=== PATIENT | male | born 1965 | race Caucasian/White ===

== ENCOUNTER 2018-10-18 08:10 | Inpatient (IN) | payer MEDICAID, OTHER ==
[2018-10-18] MEDS ORDERED: Piperacillin/Tazobact 3.375 GM in Sodium Chloride 100 ML IVPB STA (09:00)
--- NOTE | 2018-10-18 09:08 | C.PDOC ---
History Of Present Illness 52 y/o male pt presents to the ER c/o right leg redness and swelling for x2 days. Pt denies injury to legs, fever, or excessive activities that require him to kneel often. Pt reports his PMD is Dr. Dutton. Time Seen by Provider: 10/18/18 08:22 Chief Complaint (Nursing): Lower Extremity Problem/Injury History Per: Patient History/Exam Limitations: no limitations Onset/Duration Of Symptoms: Days (x2) Current Symptoms Are (Timing): Still Present Past Medical History Reviewed: Historical Data, Nursing Documentation, Vital Signs Vital Signs: Last Vital Signs Temp 98.4 F 10/18/18 08:12 Pulse 91 H 10/18/18 08:12 Resp 18 10/18/18 08:12 BP 150/92 H 10/18/18 08:12 Pulse Ox 95 10/18/18 08:12 - Medical History PMH: HTN - [facility] Procedures DESTRUCT ABD WALL LESION (06/27/13) OTH & OPEN REP OTH HERNIA OF ANTER ABD WALL W GRF OR PROSTH (06/27/13) Family History: States: No Known Family Hx - Social History Hx Tobacco Use: No Hx Alcohol Use: No Hx Substance Use: No - Immunization History Hx Tetanus Toxoid Vaccination: No Hx Influenza Vaccination: No Hx Pneumococcal Vaccination: No Review Of Systems Except As Marked, All Systems Reviewed And Found Negative. Musculoskeletal: Positive for: Leg Pain (redness and swelling b/l) Physical Exam - Physical Exam Appears: Non-toxic, No Acute Distress Skin: Normal Color, Warm, Dry Head: Atraumatic, Normacephalic Eye(s): bilateral: Normal Inspection, PERRL, EOMI, left: Other (blind) Chest: Symmetrical Cardiovascular: Rhythm Regular, No Murmur Respiratory: Normal Breath Sounds, No Rales, No Rhonchi, No Wheezing Gastrointestinal/Abdominal: Normal Exam, Soft, No Tenderness Extremity: No Calf Tenderness (b/l), Swelling (Right leg ), Other (R Leg: tib/fib erythema, no crepitus, neurovascular intact; L Leg: early erthema on medial aspect of tib/fib area. ) Pulses: Left Dorsalis Pedis: Normal, Right Dorsalis Pedis: Normal Neurological/Psych: Oriented x3, Normal Speech, Normal Motor, Normal Sensation ED Course And Treatment - Laboratory Results Result Diagrams: 10/18/18 09:31 10/18/18 09:31 ECG: Interpreted By Me, Viewed By Me ECG Rhythm: Sinus Rhythm Interpretation Of ECG: normal intervals; normal axis; non-specific T wave chnages Rate From EC O2 Sat by Pulse Oximetry: 95 (RA) Pulse Ox Interpretation: Normal - Other Rad chest X-Ray: Read By Radiologist Interpretation: Accession No. : [id number]. Patient Name / ID : ANDREW GARCIA / [id number]. Exam Date : 10/18/2018 09:58:35 ( Approved ). Study Comment : Sex / Age : M / 52Y. Creator : Keyla Montez MD. Dictator : Keyla Montez MD. 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 Approver2 : Report Date : 10/18/2018 10:11:09. My Comment : . HISTORY: SOB. COMPARISON: Chest x-ray performed 06/27/13. TECHNIQUE: Chest, one view. FINDINGS: LUNGS: No focal consolidation. Please note that chest x-ray has limited sensitivity for the detection of pulmonary masses. PLEURA: No significant pleural effusion identified. No definite pneumothorax . CARDIOVASCULAR: Heart size appears wi thin normal limits. Atherosclerotic calcification present. OSSEOUS STRUCTURES: No acute osseous abnormality identified. VISUALIZED UPPER ABDOMEN: Unremarkable. OTHER FINDINGS: None. IMPRESSION: No focal consolidation. Tib X-Ray: Read By Radiologist Interpretation: Accession No. : [id number]. Patient Name / ID : ANDREW GARCIA / [id number]. Exam Date : 10/18/2018 09:53:38 ( Approved ). Study Comment : Sex / Age : M / 52Y. Creator : Keyla Montez MD. Dictator : Keyla Montez MD. 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 Approver2 : Report Date : 10/18/2018 10:16:47. My Comment : . PROCEDURE: Radiographs of the right tibia and fibula. HISTORY: infection. COMPARISON: None available. FINDINGS: BONES: No acute displaced fracture. Small osseous proliferation involving the distal 3rd lateral tibia and medial fibula possibly related to remote injury. Correlate clinically. JOINT SPACES: No dislocation. OTHER FINDINGS: Soft tissue swelling. No evidence of radiopaque foreign body. IMPRESSION: Soft tissue swelling. Findings as above. Medical Decision Making Medical Decision Making: Impression: Cellulitis Plans: -- ekg -- chem labs -- blood work -- CXR -- IV fluids -- Vancomysin -- Blood cx -- R Tibia Fibula XR -- Venous duplex scan lower extremity Venous duplex scan results: RLE no abnormal findings Disposition Discussed With : Hoa Valdovinos Doctor Will See Patient In The: Hospital Counseled Patient/Family Regarding: Studies Performed, Diagnosis - Disposition Disposition: HOSPITALIZED Disposition Time: 10:28 Condition: FAIR Forms: [facility] (Swedish) - Clinical Impression Clinical Impression: Cellulitis - Scribe Statement The provider has reviewed the documentation as recorded by the Scribe Kathryn Carney Provider Attestation: All medical record entries made by the Scribe were at my direction and personally dictated by me. I have reviewed the chart and agree that the record accurately reflects my personal performance of the history, physical exam, medical decision making, and the department course for this patient. I have also personally directed, reviewed, and agree with the discharge instructions and disposition.
[2018-10-18 09:36] LABS: BASO % 0.2 % (0.0-2.0); EOS # 0.6 K/uL (0.0-0.7); EOS % 6.2 % (0.0-4.0); HEMOGLOBIN 15.3 g/dL (12.0-18.0); LYMPH # 1.8 K/uL (1.0-4.3); MEAN CELL VOLUME 86.9 fL (80.0-94.0); MEAN CORPUSCULAR HEMOGLOBIN 29.4 pg (27.0-31.0); MEAN CORPUSCULAR HGB CONC 33.9 g/dL (33.0-37.0); MEAN PLATELET VOLUME 9.7 fL (7.2-11.7); MONO # 0.5 K/uL (0.0-0.8); MONO % 5.8 % (0.0-10.0); NEUT # 6.5 K/uL (1.8-7.0); NEUT % 68.8 % (50.0-75.0); RBC 5.18 Mil/uL (4.40-5.90); RED CELL DISTRIBUTION WIDTH 13.3 % (11.5-14.5); WHITE BLOOD COUNT 9.4 K/uL (4.8-10.8)
[2018-10-18 09:48] LABS: ALB/GLOB RATIO 1.2 (1.0-2.1); ALBUMIN 3.8 g/dL (3.5-5.0); ALT/SGPT 39 U/L (21-72); AST/SGOT 24 U/L (17-59); BLOOD UREA NITROGEN 15 mg/dL (9-20); GFR NON-AFRICAN AMERICAN > 60
--- NOTE | 2018-10-18 10:15 | RAD ---
HISTORY: SOB COMPARISON: Chest x-ray performed 06/27/13 TECHNIQUE: Chest, one view. FINDINGS: LUNGS: No focal consolidation. Please note that chest x-ray has limited sensitivity for the detection of pulmonary masses. PLEURA: No significant pleural effusion identified. No definite pneumothorax . CARDIOVASCULAR: Heart size appears within normal limits. Atherosclerotic calcification present. OSSEOUS STRUCTURES: No acute osseous abnormality identified. VISUALIZED UPPER ABDOMEN: Unremarkable. OTHER FINDINGS: None. IMPRESSION: No focal consolidation.
[2018-10-18] MEDS ORDERED: Piperacillin/Tazobact 3.375 gm 100 ML IVPB ONE (10:19)
[2018-10-18] MEDS ORDERED: Vancomycin 1 GM 1 GM/250 ML BAG IVPB ONE (10:19)
--- NOTE | 2018-10-18 10:20 | RAD ---
PROCEDURE: Radiographs of the right tibia and fibula. HISTORY: infection COMPARISON: None available. FINDINGS: BONES: No acute displaced fracture. Small osseous proliferation involving the distal 3rd lateral tibia and medial fibula possibly related to remote injury. Correlate clinically. JOINT SPACES: No dislocation. OTHER FINDINGS: Soft tissue swelling. No evidence of radiopaque foreign body. IMPRESSION: Soft tissue swelling. Findings as above.
[2018-10-18 11:45] VITALS: RESP 20
--- NOTE | 2018-10-18 11:46 | CP.PCM.HP ---
<Cynthia Gipson - Last Filed: 10/18/18 16:41> History of Present Illness - History of Present Illness History of Present Illness: PGY-1 Cynthia Gipson D.O. H&P for Dr. Valdovinos's service: Patient is a 52 yo male with a history of HTN and incarcerated hernia repair who presented with leg redness and swelling. Patient states that 1 week ago, he started to itch on his lower legs. 2 days ago, he noticed both of his calves becoming red. His R leg also started to swell. The redness has expanded and the swelling has increased in the R leg. Patient states that this has happened to him for the past 3-4 years during the winter. He typically goes to his PMD and receives medication (antibiotic, cream) as an outpatient, but he says this time is the most severe. Additionally, patient states that his legs are very itchy, and this typically occurs during each winter as well. There are some superficial lesions on his legs that he says are particularly itchy. He denies rash elsewhere on his body. This has not affected his walking. He denies any bleeding or discharge. He denies any trauma. 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 He denies recent travel. He denies bug bites/ticks. Denies fever/chills, KNIGHT, cough/congestion, chest pain, SOB, abdominal pain, change of appetite, N/V/D/C. PMH: HTN PSH: incarcerated hernia repair 2012 (Dr. 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 system maintainer Occasional alcohol- 2 beers 1x/month Denies tobacco and illicit drugs PMD: [place] Present on Admission - Present on Admission Any Indicators Present on Admission: No History of DVT/PE: No History of Uncontrolled Diabetes: No Urinary Catheter: No Decubitus Ulcer Present: No Decubitus Ulcer Stage: Unstageable History Surgical Site Infection Following: None Review of Systems - Constitutional Constitutional: absent: Anorexia, Chills, Fatigue, Fever, Headache - EENT Eyes: Loss of Vision (L eye- chronic, 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 absent: Numbness, Stiffness, Tingling - Integumentary Integumentary: As Per HPI, Erythema (LEs), Lesions (RLE), Pruritus (LEs), Swelling (RLE). absent: Bleeding Lesions - Neurological Neurological: absent: Paresthesias, Sensory Deficit, Tremor, Weakness - Hematologic/Lymphatic Hematologic: absent: Easy Bleeding, Easy Bruising, Lymphadenopathy Past Patient History - Infectious Disease Hx of Infectious Diseases: None - Tetanus Immunizations Tetanus Immunization: Unknown - Past Medical History & Family History Past Medical History?: Yes Past Family History: Reviewed and not pertinent - Past Social History Smoking Status: Never Smoked Chewing Tobacco Use: No Cigar Use: No Alcohol: Occasional Drugs: Denies Home Situation {Lives}: Other (girlfriend) - CARDIAC Hx Hypertension: Yes - PSYCHIATRIC Hx Substance Use: No - SURGICAL HISTORY Hx Surgeries: Yes Other/Comment: ABDOMINAL HERNIA SURGERY - ANESTHESIA Hx Anesthesia: Yes Hx Anesthesia Reactions: No Meds Allergies/Adverse Reactions: Allergies Allergy/AdvReac Type Severity Reaction Status Date / Time No Known Allergies Allergy Verified 10/18/18 08:18 Physical Exam - Constitutional Appears: No Acute Distress - Head Exam Head Exam: ATRAUMATIC, NORMAL INSPECTION, NORMOCEPHALIC - Eye Exam Eye Exam: absent: Conjunctival injection, Scleral icterus Additional comments: L eye fixed laterally, cataract, ptosis - ENT Exam ENT Exam: Mucous Membranes Moist - Neck Exam Neck exam: Positive for: Normal Inspection - Respiratory Exam Respiratory Exam: Clear to Auscultation Bilateral, NORMAL BREATHING PATTERN. absent: Accessory Muscle Use, Respiratory Distress - Cardiovascular Exam Cardiovascular Exam: REGULAR RHYTHM, +S1, +S2. absent: Systolic Murmur - GI/Abdominal Exam GI & Abdominal Exam: Soft. absent: Distended, Tenderness - Extremities Exam Extremities exam: Positive for: full ROM (R knee decreased due to swelling), pedal pulses present Additional comments: erythema and nonpitting edema of RLE below knee superficial lesion on R calf- no bleeding or discharge erythema of L calf, no lesions or noticeable edema - Back Exam Back exam: NORMAL INSPECTION - Neurological Exam Neurological exam: Alert, CN II-XII Intact, Oriented x3 - Psychiatric Exam Psychiatric exam: Normal Affect, Normal Mood - Skin Skin Exam: Dry, Warm Results - Vital Signs Recent Vital Signs: Last Vital Signs Temp 98 F 10/18/18 10:17 Pulse 75 10/18/18 10:17 Resp 16 10/18/18 10:56 BP 125/73 10/18/18 10:17 Pulse Ox 95 10/18/18 10:28 - Labs Result Diagrams: 10/18/18 09:31 10/18/18 09:31 Labs: Laboratory Results - last 24 hr 10/18/18 10/18/18 09:31 09:31 WBC 9.4 RBC 5.18 Hgb 15.3 Hct 45.0 MCV 86.9 MCH 29.4 MCHC 33.9 RDW 13.3 Plt Count 196 MPV 9.7 Neut % (Auto) 68.8 Lymph % (Auto) 19.0 L [place] % (Auto) 5.8 Eos % (Auto) 6.2 H Baso % (Auto) 0.2 Neut # (Auto) 6.5 Lymph # (Auto) 1.8 [place] # (Auto) 0.5 Eos # (Auto) 0.6 Baso # (Auto) 0.0 Sodium 138 Potassium 3.7 Chloride 104 Carbon Dioxide 27 Anion Gap 11 BUN 15 Creatinine 0.6 L Est GFR ( Amer) > 60 Est GFR (Non-Af Amer) > 60 Random Glucose 114 H Calcium 9.0 Total Bilirubin 0.9 AST 24 ALT 39 Alkaline Phosphatase 82 Total Protein 6.9 Albumin 3.8 Globulin 3.1 Albumin/Globulin Ratio 1.2 Assessment & Plan - Assessment and Plan (Free Text) Assessment: Patient is a 52 yo male with a history of HTN who presents with b/l LE cellulitis RLE>>LLE x 2 days. Plan: Cellulitis, RLE>>LLE - Afebrile, no leukocytosis - LE Dopplers: no DVT - R tibia/fibula XR: soft tissue swelling - Blood Cx pending - Vancomycin 1 g IV Q12H- started 10/18 - Zosyn 3.375 mg IV Q6H- started 10/18 - Florastor 250 mg PO BID - Benadryl 25 mg PO Q6H PRN pruritis Hypertension - Monitor vitals Q4H - Norvasc 5 mg PO daily Ppx: VTE: SCD contraindicated due to cellulitis GI: PTX 40 mg PO daily Code status: full code Case discussed with attending, Dr. Valdovinos. <Hoa Valdovinos Nathalie - Last Filed: 10/18/18 18:02> Results - Vital Signs Recent Vital Signs: Last Vital Signs Temp 98.6 F 10/18/18 15:56 Pulse 82 10/18/18 15:56 Resp 20 10/18/18 15:56 BP 125/75 10/18/18 15:56 Pulse Ox 96 10/18/18 15:56 - Labs Result Diagrams: 10/18/18 09:31 10/18/18 09:31 Labs: Laboratory Results - last 24 hr 10/18/18 10/18/18 09:31 09:31 WBC 9.4 RBC 5.18 Hgb 15.3 Hct 45.0 MCV 86.9 MCH 29.4 MCHC 33.9 RDW 13.3 Plt Count 196 MPV 9.7 Neut % (Auto) 68.8 Lymph % (Auto) 19.0 L [place] % (Auto) 5.8 Eos % (Auto) 6.2 H Baso % (Auto) 0.2 Neut # (Auto) 6.5 Lymph # (Auto) 1.8 [place] # (Auto) 0.5 Eos # (Auto) 0.6 Baso # (Auto) 0.0 Sodium 138 Potassium 3.7 Chloride 104 Carbon Dioxide 27 Anion Gap 11 BUN 15 Creatinine 0.6 L Est GFR ( Amer) > 60 Est GFR (Non-Af Amer) > 60 Random Glucose 114 H Calcium 9.0 Total Bilirubin 0.9 AST 24 ALT 39 Alkaline Phosphatase 82 Total Protein 6.9 Albumin 3.8 Globulin 3.1 Albumin/Globulin Ratio 1.2 Attending/Attestation - Attestation I have personally seen and examined this patient.: Yes I have fully participated in the care of the patient.: Yes I have reviewed all pertinent clinical information: Yes Notes (Text): 52 year old Male with past medical history of hypertension with itchness and redness of the right leg that started one week ago but worsening over the past 2-3 days. Patient has tried over the counter creams but did not improved. Patient does not have history of any trauma of the leg, denies change in sensation, denies shaving, but reports constant urge to itch the leg which he was advised to stop. Patient's cellulitis was more extensiver over the right lower extremity compared to the left lower extremity. We have outlined the legs. Patient started on empiric antibiotic therapy. patient does not have any discharge over the legs no pus observed. Patient given the extent and severity of his cellulitis will benefit from iv antibiotic therapy and we will attempt change to PO if there is improvement for discharge planning Assessment/Plan 1. Cellulitis, RLE>>LLE - Afebrile, no leukocytosis - LE Dopplers: no DVT - R tibia/fibula XR: soft tissue swelling - Blood Cx pending - Vancomycin 1 g IV Q12H- started 10/18/18 - Zosyn 3.375 mg IV Q6H- started 10/18/18 - Florastor 250 mg PO BID - Benadryl 25 mg PO Q8H PRN pruritis 2. History of Hypertension - Monitor vitals Q4H - Norvasc 5 mg PO daily 3. Ppx: VTE: SCD contraindicated due to cellulitis GI: Protonix 40 mg PO daily Code status: full code
--- NOTE | 2018-10-18 12:05 | VASCLAB ---
Date of service: 10/18/2018 PROCEDURE: Right Lower Extremity Venous Duplex Exam. HISTORY: Right leg swelling PRIORS: None. TECHNIQUE: Right common femoral, femoral, popliteal and posterior tibial, peroneal and great saphenous veins were evaluated. Flow was assessed with color Doppler, compressibility, assessment of phasic flow and augmentation response. Report prepared by CORNEL Luu FINDINGS: RIGHT: 1. Common Femoral Vein: 1.1. Compressibility - Fully compressible: Thrombus - None: Flow - Phasic: Augmentation -Normal: Reflux - None. 2. Femoral Vein: 2.1. Compressibility - Fully compressible: Thrombus - None: Flow - Phasic: Augmentation -Normal: Reflux - None. 3. Popliteal Vein: 3.1. Compressibility - Fully compressible: Thrombus - None: Flow - Phasic: Augmentation -Normal: Reflux - None. 4. Posterior Tibial Vein: 4.1. Compressibility - Fully compressible: Thrombus - None: Flow - Phasic: Augmentation -Normal: Reflux - None. 5. Peroneal Vein: 5.1. Not visualized due to swelling. 6. Great Saphenous Vein: 6.1. Compressibility - Fully compressible: Thrombus -None: Flow - Phasic: Augmentation - Normal: Reflux - None. OTHER FINDINGS: Normal venous flow noted in the LEFT common femoral vein. IMPRESSION: No evidence of deep or superficial vein thrombosis of the right lower extremity, for the examined veins.
[2018-10-18] MEDS ORDERED: Vancomycin 1 gm/NS 200 ml 1 GM/200 ML BAG IVPB SCH ×2 (15:00→16:00)
[2018-10-18] MEDS: Piperacill/Tazo 3.375gm in Dex 3.375 GM/50 ML BAG IVPB SCH ×2 (15:05→23:32)
[2018-10-18] MEDS: Saccharomyces Boulardi 250 mg Cap PO SCH (18:09)
[2018-10-18] MEDS: Vancomycin 1 gm/NS 200 ml 1 GM/200 ML BAG IVPB SCH (22:13)
[2018-10-19 07:04] LABS: ALB/GLOB RATIO 1.2 (1.0-2.1); ALBUMIN 3.6 g/dL (3.5-5.0); ALT/SGPT 43 U/L (21-72); AST/SGOT 24 U/L (17-59); BLOOD UREA NITROGEN 9 mg/dL (9-20); CALCIUM 8.5 mg/dl (8.6-10.4); GFR NON-AFRICAN AMERICAN > 60
[2018-10-19 07:05] LABS: BASO % 0.3 % (0.0-2.0); EOS # 0.8 K/uL (0.0-0.7); EOS % 9.3 % (0.0-4.0); HEMOGLOBIN 15.1 g/dL (12.0-18.0); LYMPH # 2.5 K/uL (1.0-4.3); MEAN CELL VOLUME 87.5 fL (80.0-94.0); MEAN CORPUSCULAR HEMOGLOBIN 29.4 pg (27.0-31.0); MEAN CORPUSCULAR HGB CONC 33.7 g/dL (33.0-37.0); MEAN PLATELET VOLUME 9.9 fL (7.2-11.7); MONO # 0.6 K/uL (0.0-0.8); MONO % 6.1 % (0.0-10.0); NEUT % 56.3 % (50.0-75.0); RBC 5.13 Mil/uL (4.40-5.90)
--- NOTE | 2018-10-19 07:38 | CP.PCM.PN ---
<Hoa Valdovinos V - Last Filed: 10/19/18 19:00> Objective - Vital Signs/Intake and Output Vital Signs (last 24 hours): Temp Pulse Resp BP Pulse Ox 98 F 78 20 119/72 96 10/19/18 15:30 10/19/18 15:30 10/19/18 15:30 10/19/18 15:30 10/19/18 15:30 - Medications Medications: Current Medications Acetaminophen (Tylenol 325mg Tab) 650 mg PO Q6 PRN PRN Reason: Fever >100.4 F Amlodipine Besylate (Norvasc) 5 mg PO DAILY [facility] Last Admin: 10/19/18 09:25 Dose: 5 mg Diphenhydramine HCl (Benadryl) 25 mg PO Q8H PRN PRN Reason: Itching / Pruritus Last Admin: 10/19/18 17:20 Dose: 25 mg Enoxaparin Sodium (Lovenox) 40 mg SC DAILY [facility] Last Admin: 10/19/18 09:25 Dose: 40 mg Piperacillin Sod/Tazobactam Sod (Zosyn 3.375 Gm Iv Premix) 3.375 gm in 50 mls @ 200 mls/hr IVPB Q8H ALEJANDRO; Protocol Last Admin: 10/19/18 14:30 Dose: 200 mls/hr Vancomycin/Sodium Chloride (Vancomycin 1 Gm/Ns 200 Ml) 1 gm in 200 mls @ 166.6 mls/hr IVPB Q12H ALEJANDRO; Protocol Stop: 10/23/18 23:01 Last Admin: 10/19/18 10:20 Dose: 166.6 mls/hr Influenza Virus Vaccine (Fluzone Quad [id number]) 60 mcg IM .ONCE ONE Stop: 10/20/18 10:01 Pantoprazole Sodium (Protonix Ec Tab) 40 mg PO DAILY [facility] Last Admin: 10/19/18 09:25 Dose: 40 mg Pneumococcal Polyvalent Vaccine (Pneumovax 23 Vaccine) 0.5 ml IM .ONCE ONE Stop: 10/20/18 10:01 Saccharomyces Boulardii (Florastor) 250 mg PO BID [facility] Last Admin: 10/19/18 17:20 Dose: 250 mg - Labs Labs: 10/19/18 06:34 10/19/18 06:34 Attending/Attestation - Attestation I have personally seen and examined this patient.: Yes I have fully participated in the care of the patient.: Yes I have reviewed all pertinent clinical information, including history, physical exam and plan: Yes Notes (Text): Patient seen, examined and case discussed with medical records receptionist. Patient reports he is feeling better. patient has less itchiness. Patient does not have fever, does not have elevated white count. Patient's blood cultures are negative. Patient's erythema is mildly improving with antibiotics; will continue to benefit from IV antibiotics and further hospitalization given the severity of his cellulitis. Patient's blood pressure is controlled while on Norvasc. Assessment/Plan 1. Cellulitis, RLE>>LLE - Afebrile, no leukocytosis - LE Dopplers: no DVT - R tibia/fibula XR: soft tissue swelling - Blood Cx (10/18/18); negative for 24 hours X2 - Vancomycin 1 g IV Q12H- started 10/18/18 check vancomycin trough tomorrow - Zosyn 3.375 mg IV Q6H- started 10/18/18 - Florastor 250 mg PO BID - Benadryl 25 mg PO Q8H PRN pruritis 2. History of Hypertension - Monitor vitals Q4H - Norvasc 5 mg PO daily 3. Ppx: VTE: SCD contraindicated due to cellulitis GI: Protonix 40 mg PO daily <Camden Lucas - Last Filed: 10/19/18 19:59> Subjective - Date & Time of Evaluation Date of Evaluation: 10/19/18 Time of Evaluation: 09:30 - Subjective Subjective: PGY-[address] Valdovinos service Patient is seen and examined at bedside. Patient continues to complain of itching, which comes and goes throughout the day. Patient states swelling has i mproved significantly. Patient denies any other complaints at this time. Patient tolerating food and having regular bowel movements. Denies fever, chills, abdominal pain, chest pain, shortness of breath, n/v/d/c, or urinary symptoms. Objective - Vital Signs/Intake and Output Vital Signs (last 24 hours): Temp Pulse Resp BP Pulse Ox 98.3 F 75 20 105/65 97 10/19/18 00:00 10/19/18 00:00 10/19/18 00:00 10/19/18 00:00 10/19/18 00:00 Intake and Output: 10/19/18 10/19/18 06:59 18:59 Intake Total 800 Balance 800 - Medications Medications: Current Medications Acetaminophen (Tylenol 325mg Tab) 650 mg PO Q6 PRN PRN Reason: Fever >100.4 F Amlodipine Besylate (Norvasc) 5 mg PO DAILY [facility] Diphenhydramine HCl (Benadryl) 25 mg PO Q8H PRN PRN Reason: Itching / Pruritus Last Admin: 10/18/18 18:08 Dose: 25 mg Piperacillin Sod/Tazobactam Sod (Zosyn 3.375 Gm Iv Premix) 3.375 gm in 50 mls @ 200 mls/hr IVPB Q8H ALEJANDRO; Protocol Last Admin: 10/18/18 23:32 Dose: 200 mls/hr Vancomycin/Sodium Chloride (Vancomycin 1 Gm/Ns 200 Ml) 1 gm in 200 mls @ 166.6 mls/hr IVPB Q12H ALEJANDRO; Protocol Stop: 10/23/18 23:01 Last Admin: 10/18/18 22:13 Dose: 166.6 mls/hr Influenza Virus Vaccine (Fluzone Quad [id number]) 60 mcg IM .ONCE ONE Stop: 10/20/18 10:01 Pantoprazole Sodium (Protonix Ec Tab) 40 mg PO DAILY [facility] Pneumococcal Polyvalent Vaccine (Pneumovax 23 Vaccine) 0.5 ml IM .ONCE ONE Stop: 10/20/18 10:01 Saccharomyces Boulardii (Florastor) 250 mg PO BID [facility] Last Admin: 10/18/18 18:09 Dose: 250 mg - Labs Labs: 10/19/18 06:34 10/19/18 06:34 - Constitutional Appears: Non-toxic, No Acute Distress - Head Exam Head Exam: ATRAUMATIC, NORMAL INSPECTION, NORMOCEPHALIC - Eye Exam Eye Exam: absent: Scleral icterus Additional comments: L eye fixed laterally, cataract, ptosis - ENT Exam ENT Exam: Mucous Membranes Moist, Normal Exam - Neck Exam Neck Exam: Full ROM, Normal Inspection - Respiratory Exam Respiratory Exam: Clear to Ausculation Bilateral, NORMAL BREATHING PATTERN. absent: Rales, Rhonchi, Wheezes - Cardiovascular Exam Cardiovascular Exam: REGULAR RHYTHM, +S1, +S2 - GI/Abdominal Exam GI & Abdominal Exam: Soft, Normal Bowel Sounds. absent: Distended, Tenderness - Extremities Exam Extremities Exam: Full ROM Additional comments: Right LE edema, nonpitting and erythema noticed, no lesions, no purulent or bloody discharge crusting observed over lateral right anterior leg, dry, no abrasion noted left LE erythema, nonpitting edema - Back Exam Back Exam: Full ROM, NORMAL INSPECTION - Neurological Exam Neurological Exam: Alert, Awake, Oriented x3 - Psychiatric Exam Psychiatric exam: Normal Affect, Normal Mood - Skin Skin Exam: Dry, Warm Assessment and Plan - Assessment and Plan (Free Text) Assessment: Patient is a 52 yo male with a history of HTN admitted for b/l LE cellulitis RLE>>LLE Plan: 1. Cellulitis, RLE>>LLE - Afebrile @ 98, no leukocytosis (9.0) - LE Dopplers: no DVT - R tibia/fibula XR: soft tissue swelling - Blood Cx (10/18/18); negative for 24 hours X2 - f/u - Vancomycin 1 g IV Q12H- started 10/18/18 check vancomycin trough 10/20/18 @ 9:30 am - Zosyn 3.375 mg IV Q6H- started 10/18/18 - Florastor 250 mg PO BID - Benadryl 25 mg PO Q8H PRN pruritis - continue to monitor for erythema improvement 2. History of Hypertension - BP this am 113/78 - Monitor vitals Q4H - Norvasc 5 mg PO daily 3. Ppx: VTE: SCD contraindicated due to cellulitis, lovenox 40mg PO Daily GI: Protonix 40 mg PO daily [facility] Plan discussed with Dr Aruna Lucas, PGY1
[2018-10-19] MEDS: Piperacill/Tazo 3.375gm in Dex 3.375 GM/50 ML BAG IVPB SCH ×2 (09:24→14:30)
[2018-10-19] MEDS: Saccharomyces Boulardi 250 mg Cap PO SCH ×2 (09:25→17:20)
[2018-10-19] MEDS: Pantoprazole 40 mg EC Tab PO SCH (09:25)
[2018-10-19] MEDS: Enoxaparin 40 mg Syringe SC SCH (09:25)
[2018-10-19] MEDS: Vancomycin 1 gm/NS 200 ml 1 GM/200 ML BAG IVPB SCH ×2 (10:20→22:16)
--- NOTE | 2018-10-19 12:00 | CARD ---
APPROVED REPORT Date of service: 10/18/2018 EKG Measurement Heart [id number] <Conclusion> Normal sinus rhythm Minimal voltage criteria for LVH, may be normal variant Borderline ECG
[2018-10-20] MEDS: Piperacill/Tazo 3.375gm in Dex 3.375 GM/50 ML BAG IVPB SCH ×3 (00:08→14:45)
[2018-10-20 00:22] VITALS: O2SAT 97
[2018-10-20 07:13] LABS: BASO % 0.5 % (0.0-2.0); EOS # 0.8 K/uL (0.0-0.7); EOS % 9.1 % (0.0-4.0); LYMPH # 2.4 K/uL (1.0-4.3); LYMPH % 26.9 % (20.0-40.0); MEAN CELL VOLUME 86.3 fL (80.0-94.0); MEAN CORPUSCULAR HEMOGLOBIN 29.4 pg (27.0-31.0); MEAN CORPUSCULAR HGB CONC 34.1 g/dL (33.0-37.0); MONO # 0.5 K/uL (0.0-0.8); MONO % 5.1 % (0.0-10.0); NEUT # 5.2 K/uL (1.8-7.0); NEUT % 58.4 % (50.0-75.0); RBC 5.09 Mil/uL (4.40-5.90); RED CELL DISTRIBUTION WIDTH 13.2 % (11.5-14.5)
[2018-10-20 07:32] LABS: ALB/GLOB RATIO 1.1 (1.0-2.1); ALBUMIN 3.6 g/dL (3.5-5.0); ALT/SGPT 39 U/L (21-72); AST/SGOT 26 U/L (17-59); BLOOD UREA NITROGEN 11 mg/dL (9-20); CALCIUM 8.7 mg/dl (8.6-10.4); GFR NON-AFRICAN AMERICAN > 60
[2018-10-20 08:15] VITALS: BP 113/72; PULSE 62; TEMP 98
[2018-10-20] MEDS: Saccharomyces Boulardi 250 mg Cap PO SCH (09:44)
[2018-10-20] MEDS: Enoxaparin 40 mg Syringe SC SCH (09:44)
[2018-10-20] MEDS: Pantoprazole 40 mg EC Tab PO SCH (09:44)
[2018-10-20] MEDS ORDERED: Influenza Vaccine 60 MCG/0.5 ML SYR (3 yr & up) IM ONE (10:00)
[2018-10-20] MEDS ORDERED: Pneumococcal 23-Valent Vaccine IM ONE (10:00)
[2018-10-20] MEDS: Vancomycin 1 gm/NS 200 ml 1 GM/200 ML BAG IVPB SCH (11:34)
--- NOTE | 2018-10-20 11:42 | CP.PCM.DIS ---
<Trevor Lopez - Last Filed: 10/20/18 13:07> Provider - Provider Date of Admission: 10/18/18 10:32 Attending physician: Hoa Valdovinos DO Time Spent in preparation of Discharge (in minutes): 45 Hospital Course - Lab Results Lab Results: Micro Results 10/18/18 10:19 Blood Blood Culture - Preliminary NO GROWTH AFTER 48 HOURS 10/18/18 09:33 Blood Blood Culture - Preliminary NO GROWTH AFTER 48 HOURS Most Recent Lab Values WBC 9.0 K/uL (4.8-10.8) 10/20/18 06:59 RBC 5.09 Mil/uL (4.40-5.90) 10/20/18 06:59 Hgb 15.0 g/dL (12.0-18.0) 10/20/18 06:59 Hct 43.9 % (35.0-51.0) 10/20/18 06:59 MCV 86.3 fL (80.0-94.0) 10/20/18 06:59 MCH 29.4 pg (27.0-31.0) 10/20/18 06:59 MCHC 34.1 g/dL (33.0-37.0) 10/20/18 06:59 RDW 13.2 % (11.5-14.5) 10/20/18 06:59 Plt Count 209 K/uL (130-400) 10/20/18 06:59 MPV 10.0 fL (7.2-11.7) 10/20/18 06:59 Neut % (Auto) 58.4 % (50.0-75.0) 10/20/18 06:59 Lymph % (Auto) 26.9 % (20.0-40.0) 10/20/18 06:59 [place] % (Auto) 5.1 % (0.0-10.0) 10/20/18 06:59 Eos % (Auto) 9.1 % (0.0-4.0) H 10/20/18 06:59 Baso % (Auto) 0.5 % (0.0-2.0) 10/20/18 06:59 Neut # (Auto) 5.2 K/uL (1.8-7.0) 10/20/18 06:59 Lymph # (Auto) 2.4 K/uL (1.0-4.3) 10/20/18 06:59 [place] # (Auto) 0.5 K/uL (0.0-0.8) 10/20/18 06:59 Eos # (Auto) 0.8 K/uL (0.0-0.7) H 10/20/18 06:59 Baso # (Auto) 0.0 K/uL (0.0-0.2) 10/20/18 06:59 Sodium 138 mmol/L (132-148) 10/20/18 06:59 Potassium 4.0 mmol/L (3.6-5.2) 10/20/18 06:59 Chloride 105 mmol/L (98-107) 10/20/18 06:59 Carbon Dioxide 25 mmol/L (22-30) 10/20/18 06:59 Anion Gap 12 (10-20) 10/20/18 06:59 BUN 11 mg/dL (9-20) 10/20/18 06:59 Creatinine 0.6 mg/dL (0.8-1.5) L 10/20/18 06:59 Est GFR ( Amer) > 60 10/20/18 06:59 Est GFR (Non-Af Amer) > 60 10/20/18 06:59 Random Glucose 102 mg/dL (75-110) 10/20/18 06:59 Calcium 8.7 mg/dl (8.6-10.4) 10/20/18 06:59 Phosphorus 3.0 mg/dL (2.5-4.5) 10/20/18 06:59 Magnesium 2.1 mg/dL (1.6-2.3) 10/20/18 06:59 Total Bilirubin 0.5 mg/dL (0.2-1.3) 10/20/18 06:59 AST 26 U/L (17-59) 10/20/18 06:59 ALT 39 U/L (21-72) 10/20/18 06:59 Alkaline Phosphatase 84 U/L (38-126) 10/20/18 06:59 Total Protein 6.8 g/dL (6.3-8.3) 10/20/18 06:59 Albumin 3.6 g/dL (3.5-5.0) 10/20/18 06:59 Globulin 3.2 gm/dL (2.2-3.9) 10/20/18 06:59 Albumin/Globulin Ratio 1.1 (1.0-2.1) 10/20/18 06:59 Vancomycin Trough < 5.0 ug/mL (5.0-10.0) L 10/20/18 11:01 - Hospital Course Hospital Course: 1. Cellulitis, RLE>>LLE - Afebrile, no leukocytosis - LE Dopplers: no DVT - R tibia/fibula XR: soft tissue swelling - Blood Cx (10/18/18); negative for 24 hours X2 - Vancomycin 1 g IV Q12H- started 10/18/18 check vancomycin trough tomorrow - Zosyn 3.375 mg IV Q6H- started 10/18/18 - Florastor 250 mg PO BID - Benadryl 25 mg PO Q8H PRN pruritis The patients cellulitis improved with 3 days of IV abx He will be d/c on 600mg TID PO clindamycin for 14 days Florastor 250 mg BID 2. History of Hypertension - Monitor vitals Q4H - Norvasc 5 mg PO daily the patient is stable for d/c as per Dr. Valdovinos Discharge Exam - Head Exam Head Exam: ATRAUMATIC, NORMAL INSPECTION, NORMOCEPHALIC - Eye Exam Eye Exam: EOMI, Normal appearance, PERRL Pupil Exam: PERRL - ENT Exam ENT Exam: Mucous Membranes Moist - Respiratory Exam Respiratory Exam: Clear to PA & Lateral, NORMAL BREATHING PATTERN. absent: Rales, Rhonchi, Wheezes - Cardiovascular Exam Cardiovascular Exam: REGULAR RHYTHM, +S1, +S2 Discharge Plan - Discharge Medications Prescriptions: RX: amLODIPine [Norvasc] 5 mg PO DAILY #30 tab RX: Clindamycin [Cleocin] 600 mg PO TID #42 cap Saccharomyces Boulardi [Florastor] 250 mg PO BID #60 cap - Follow Up Plan Condition: STABLE Disposition: HOME/ ROUTINE Patient education suggested?: Yes Instructions: Saccharomyces boulardii, Clindamycin (Systemic), Amlodipine, Cellulitis (DC), Cellulitis (GEN) Referrals: Dave Dutton MD [Staff Provider] - <Hoa Valdovinos V - Last Filed: 10/20/18 15:04> Provider - Provider Date of Admission: 10/18/18 10:32 Attending physician: Hoa Valdovinos DO Diagnosis - Discharge Diagnosis (1) Cellulitis Status: Acute Comment: Improving. Patiant has right lower extremity cellulitis over the thigh, improving, fading, not painful on palpation on day of discharge. Patient was started on empiric antibiotic therary for IV abx. Patient's blood cultures negative for 48 hours X2, afebrile, no white count. Patient to be discharged on clindamycin PO for cellulitis; and advised if rash does not improve or exhibits a fever to come back immediately to the ER to be re-evaluated. (2) Hypertension Status: Chronic Comment: stable. c/w home medication: [facility] Course - Lab Results Lab Results: Micro Results 10/18/18 10:19 Blood Blood Culture - Preliminary NO GROWTH AFTER 48 HOURS 10/18/18 09:33 Blood Blood Culture - Preliminary NO GROWTH AFTER 48 HOURS Most Recent Lab Values WBC 9.0 K/uL (4.8-10.8) 10/20/18 06:59 RBC 5.09 Mil/uL (4.40-5.90) 10/20/18 06:59 Hgb 15.0 g/dL (12.0-18.0) 10/20/18 06:59 Hct 43.9 % (35.0-51.0) 10/20/18 06:59 MCV 86.3 fL (80.0-94.0) 10/20/18 06:59 MCH 29.4 pg (27.0-31.0) 10/20/18 06:59 MCHC 34.1 g/dL (33.0-37.0) 10/20/18 06:59 RDW 13.2 % (11.5-14.5) 10/20/18 06:59 Plt Count 209 K/uL (130-400) 10/20/18 06:59 MPV 10.0 fL (7.2-11.7) 10/20/18 06:59 Neut % (Auto) 58.4 % (50.0-75.0) 10/20/18 06:59 Lymph % (Auto) 26.9 % (20.0-40.0) 10/20/18 06:59 [place] % (Auto) 5.1 % (0.0-10.0) 10/20/18 06:59 Eos % (Auto) 9.1 % (0.0-4.0) H 10/20/18 06:59 Baso % (Auto) 0.5 % (0.0-2.0) 10/20/18 06:59 Neut # (Auto) 5.2 K/uL (1.8-7.0) 10/20/18 06:59 Lymph # (Auto) 2.4 K/uL (1.0-4.3) 10/20/18 06:59 [place] # (Auto) 0.5 K/uL (0.0-0.8) 10/20/18 06:59 Eos # (Auto) 0.8 K/uL (0.0-0.7) H 10/20/18 06:59 Baso # (Auto) 0.0 K/uL (0.0-0.2) 10/20/18 06:59 Sodium 138 mmol/L (132-148) 10/20/18 06:59 Potassium 4.0 mmol/L (3.6-5.2) 10/20/18 06:59 Chloride 105 mmol/L (98-107) 10/20/18 06:59 Carbon Dioxide 25 mmol/L (22-30) 10/20/18 06:59 Anion Gap 12 (10-20) 10/20/18 06:59 BUN 11 mg/dL (9-20) 10/20/18 06:59 Creatinine 0.6 mg/dL (0.8-1.5) L 10/20/18 06:59 Est GFR ( Amer) > 60 10/20/18 06:59 Est GFR (Non-Af Amer) > 60 10/20/18 06:59 Random Glucose 102 mg/dL (75-110) 10/20/18 06:59 Calcium 8.7 mg/dl (8.6-10.4) 10/20/18 06:59 Phosphorus 3.0 mg/dL (2.5-4.5) 10/20/18 06:59 Magnesium 2.1 mg/dL (1.6-2.3) 10/20/18 06:59 Total Bilirubin 0.5 mg/dL (0.2-1.3) 10/20/18 06:59 AST 26 U/L (17-59) 10/20/18 06:59 ALT 39 U/L (21-72) 10/20/18 06:59 Alkaline Phosphatase 84 U/L (38-126) 10/20/18 06:59 Total Protein 6.8 g/dL (6.3-8.3) 10/20/18 06:59 Albumin 3.6 g/dL (3.5-5.0) 10/20/18 06:59 Globulin 3.2 gm/dL (2.2-3.9) 10/20/18 06:59 Albumin/Globulin Ratio 1.1 (1.0-2.1) 10/20/18 06:59 Vancomycin Trough < 5.0 ug/mL (5.0-10.0) L 10/20/18 11:01 Discharge Exam - GI/Abdominal Exam GI & Abdominal Exam: Normal Bowel Sounds, Soft. absent: Distended, Firm, Guarding, Rebound, Rigid, Tenderness - Extremities Exam Extremities exam: pedal pulses present Additional comments: right lower extremity: erythematous localized to the calf and thigh, nontender, fading, healed scars, no drainage left lower extremity: erythema over the calf; fading, - Neurological Exam Neurological exam: Alert, CN II-XII Intact, Oriented x3 - Psychiatric Exam Psychiatric exam: Normal Affect, Normal Mood - Skin Skin Exam: Dry, Rash (localized to legs), Warm Attending/Attestation - Attestation I have personally seen and examined this patient.: Yes I have fully participated in the care of the patient.: Yes I have reviewed all pertinent clinical information, including history, physical exam and plan: Yes Notes (Text): Patient seen, examined, and case discussed with day-time resident. Patient denies acute complaints. Patient reports rash is improving and fading. He is aware he should not scratch the area. Will discharge patient on Clindamycin 600mg PO TID (42 tabs) for cellulitis. Blood cultures are negative for 48 hours, no fever, no elevated white count. Patient to continue his anti-hypertensive on discharge. This is a summary of patient's hospitalization. Please refer to EMR for full detail of record. Medications: 1) clindamycin 600mg PO TID For 7 days 2) florastor 250mg PO BID for 30 days Discharge Diagnoses: 1. Cellulitis of Right Lower extremity Celullitis of Left Lower extremity Assessment/Plan * Afebrile, no leukocytosis * LE Dopplers: no DVT * R tibia/fibula XR: soft tissue swelling * Blood Cx (10/18/18): negative for 48 hours X2 * Vancomycin 1gm IV Q12H (10/18/18) and Zosyn 3.375 mg IV Q6H- started 10/18/18 for 2 days while hospitalized, then transition to PO for discharge; Clindamycin 20mg/kg/day PO q8 for 5 days * Florastor 250 mg PO BID * He was advised to not scratch and if his rash did not improve while on PO antibiotics, then will need to come back for IV abx 2. History of Hypertension * c/w Norvasc 5mg PO daily
== END 2018-10-20 15:46 | disposition home or self-care (01) | DRG 383 ==
LOC: C.ER 08:10 → C.3T 10:32
PROVIDERS: ADMIT Hospitalist; ATTEND Hospitalist
DX: L03.115 Cellulitis of right lower limb (principal); I10 Essential (primary) hypertension; L03.116 Cellulitis of left lower limb; Z79.899 Other long term (current) drug therapy